=== PATIENT | male | born 1960 | race Caucasian/White ===

== ENCOUNTER 2016-05-06 14:05 | Emergency (ER) | payer MEDICARE, MEDICAID ==
[2016-05-06] MEDS ORDERED: Acetaminophen 500 MG TAB ONE (14:42)
[2016-05-06] MEDS ORDERED: Dexamethasone 4 MG TAB ONE (14:42)
[2016-05-06] MEDS ORDERED: Ketorolac Tromethamine 60 MG/2 ML VIAL ONE (14:42)
[2016-05-06] MEDS ORDERED: Diazepam 5 MG TAB ONE (14:42)
--- NOTE | 2016-05-06 14:43 | PICIS ---
[facility] EMERGENCY RECORD TRIAGE (14:20 JPER) PATIENT: NAME: Leticia Jean-Baptiste, AGE: 55, GENDER: male, : Fri1960, TIME OF GREET: FriMay 06, 2016 14:06, PREFERRED LANGUAGE: German, RACE: WHITE, ETHNICITY: Not or , ECODE BILLING MAP: [facility], SSN: [id number], Zip Code: [address], KG WEIGHT: 83.01, PHONE: , , , PERSON ID: [id number], PCP: MD Haynes Warren. (14:20 JPER) COMPLAINT: PULLED A MUSCLE-BACK. (14:20 JPER) ADMISSION: URGENCY: 4 Non Urgent, ADMISSION SOURCE: Home, TRANSPORT: Walk-in, BED: ED -03. (14:20 JPER) ASSESSMENT: Assessment: PT C/O MID TO LOW BACK PAIN RAD TO THE GROIN BILAT ONSET FRIDAY AFTER LIFTING FEED BAGS INTO BARREL ON FRIDAY. (14:20 JPER) PAIN: Patient complains of pain described as, aching, on a scale 0-10 patient rates pain as 10, Pain is constant, No aggravating factors, No relieving factors. (14:20 JPER) IMMUNIZATIONS: Flu vaccine up to date, Tetanus immunization up to date, Pneumococcal vaccine up to date. (14:20 JPER) SIRS SCORING: Heart Rate 55-109 (0), Temp range 96.8-101.1 (0), respiratory rate 12-24 (0), Mental Status altered: no (0). (14:20 JPER) TRIAGE SCREENING: Patient denies suicidal ideation, Patient denies presence of domestic violence. (14:20 JPER) PROVIDERS: TRIAGE NURSE: Aga Russell RN. (14:20 JPER) VITAL SIGNS: BP 106/69, Pulse 68, Resp 18, Temp 98.1, (Oral), O2 Sat 98, on Room Air, Time 05/06/2016 14:11. (14:11 JPER) PREVIOUS VISIT ALLERGIES: codeine sulfate, Flexeril. (14:20 JPER) KNOWN ALLERGIES codeine sulfate Flexeril CURRENT MEDICATIONS aspirin: TABLET : Strength - 325 mg : ORAL Patient Dose: mg Oral once a day. (14:22 JPER) MS Contin: TABLET, EXTENDED RELEASE : Strength - 100 mg : ORAL Patient Dose: 3 times a day. (14:24 JPER) Soma: TABLET : Strength - 350 mg : ORAL Patient Dose: Unknown. (14:32 JPER) Valium: TABLET : Strength - 10 mg : ORAL Patient Dose: every 8 hours PRN. (14:32 JPER) VITAL SIGNS VITAL SIGNS: BP: 106/69, Pulse: 68, Resp: 18, Temp: 98.1 (Oral), &a-1R&a+25V*p+0X*[id number]*c202B*c15G*c2P*p-0X&a-25V&a+1R Name: Leticia Jean-Baptiste : 1960 M55 MedRec: [id number] AcctNum: [id number] Prepared: FriMay 06, 2016 15:26 by Interface Page 1 of 7 pMD [facility] EMERGENCY RECORD O2 sat: 98 on Room Air, Time: 05/06/2016 14:11. (14:11 JPER) BP: 105/65, Pulse: 68, Resp: 18, Temp: 98.1, Pain: 9, O2 sat: 98 on RA, Time: 05/06/2016 15:00. (15:00 JPER) NURSING ASSESSMENT: BACK (14:30 JPER) CONSTITUTIONAL: Patient arrives, via hospital wheelchair, Gait steady, History obtained from patient, Patient appears, with contractures, uncomfortable, Patient cooperative, Patient alert, Oriented to person, place and time, Skin warm, Skin dry, Skin normal in color, Mucous membranes pink, Mucous membranes moist, Patient is well-groomed, Patient complains of LOW TO MID BACK PAIN. PAIN: aching pain, to the mid back, to the lower back, on a scale 0-10 patient rates pain as 10, Pain exacerbated by nothing, Nothing has been tried to alleviate the pain. BACK: Right radial pulse +3(easily palpated, considered normal), Left radial pulse +3(easily palpated, considered normal). NECK: Neck assessment findings include trachea midline. NOTES: Emotional support needed and given, Patient tolerated procedure well. NURSING PROCEDURE: DISCHARGE NOTE (15:00 JPER) DISCHARGE: Patient discharged to home, in a wheelchair, family driving, accompanied by //partner, Summary of Care printed/ provided, Patient requested and was provided an electronic copy of Discharge Instructions, Transition record given to patient, Discharge instructions given to patient, Prescriptions given and instructions on side effects given, Above person(s) verbalized understanding of discharge instructions and follow-up care, Patient treated and evaluated by physician. BELONGINGS: Belongings remain with patient, Valuables remain with patient. NOTES: Emotional support needed and given, Patient tolerated procedure well. VITAL SIGNS: BP: 105, / 65, Pulse: 68, Resp: 18, Temp: 98.1, Pain: 9, O2 sat: 98, on: RA. MEDICATION ADMINISTRATION SUMMARY Drug Name: Toradol intramuscular, Dose Ordered: 60 mg, Route: Intramuscular, Status: Given, Time: 14:49 05/06/2016, Drug Name: dexamethasone, Dose Ordered: 10 mg, Route: Oral, Status: Given, Time: 14:35 05/06/2016, Drug Name: acetaminophen oral, Dose Ordered: 1000 mg, Route: Oral, Status: Given, Time: 14:35 05/06/2016, Drug Name: Valium oral, Dose Ordered: 10 mg, Route: Oral, Status: Given, Time: 14:33 05/06/2016, Detailed record available in Medication Service section. &a-1R&a+25V*p+0X*[id number]*c202B*c15G*c2P*p-0X&a-25V&a+1R Name: Leticia Jean-Baptiste : 1960 M55 MedRec: [id number] AcctNum: [id number] Prepared: FriMay 06, 2016 15:26 by Interface Page 2 of 7 pMD [facility] EMERGENCY RECORD MEDICATION SERVICE acetaminophen oral: Order: acetaminophen oral (acetaminophen) - Dose: 1000 mg : Oral Schedule: Now Ordered by: Epifanio Parry MD Entered by: Epifanio Parry MD FriMay 06, 2016 14:32 Documented as given by: Aga Russell RN FriMay 06, 2016 14:35 Patient, Medication, Dose, Route and Time verified prior to administration. Amount given: 1GM, Site: Medication administered P.O., Correct patient, time, route, dose and medication confirmed prior to administration, Patient advised of actions and side-effects prior to administration, Allergies confirmed and medications reviewed prior to administration, Administered by CIARRA LIM. dexamethasone: Order: dexamethasone - Dose: 10 mg : Oral Schedule: Now Ordered by: Epifanio Parry MD Entered by: Epifanio Parry MD FriMay 06, 2016 14:32 Documented as given by: Aga Russell RN FriMay 06, 2016 14:35 Patient, Medication, Dose, Route and Time verified prior to administration. Amount given: 10MG, Site: Medication administered P.O., Correct patient, time, route, dose and medication confirmed prior to administration, Patient advised of actions and side-effects prior to administration, Allergies confirmed and medications reviewed prior to administration, Administered by CIARRA LIM, Patient in position of comfort, Side rails up, Cart in lowest position, Family at bedside. Toradol intramuscular: Order: Toradol intramuscular (ketorolac tromethamine) - Dose: 60 mg : Intramuscular POTENTIAL CONTRAINDICATED INTERACTION: aspirin oral - Benefits outweigh risks Schedule: Now Ordered by: Epifanio Parry MD Entered by: Epifanio Parry MD FriMay 06, 2016 14:33 Documented as given by: Aga Russell RN FriMay 06, 2016 14:49 Patient, Medication, Dose, Route and Time verified prior to administration. IM medication, Amount given: 60MG, Medication administered to right hip, Correct patient, time, route, dose and medication confirmed prior to administration, Patient advised of actions and side-effects prior to administration, Allergies confirmed and medications reviewed prior to administration, Administered by CIARRA LIM, Patient in position of comfort, Side rails up, Cart in lowest position, Family at bedside. Valium oral: Order: Valium oral (diazepam) - Dose: 10 mg : Oral Schedule: Now Ordered by: Epifanio Parry MD Entered by: Epifanio Parry MD FriMay 06, 2016 14:31 &a-1R&a+25V*p+0X*[id number]*c202B*c15G*c2P*p-0X&a-25V&a+1R Name: Leticia Jean-Baptiste : 1960 M55 MedRec: [id number] AcctNum: [id number] Prepared: FriMay 06, 2016 15:26 by Interface Page 3 of 7 pMD [facility] EMERGENCY RECORD Documented as given by: Aga Russell RN Mon May 06, 2016 14:33 Patient, Medication, Dose, Route and Time verified prior to administration. Amount given: 10 MG, Site: Medication administered P.O., Correct patient, time, route, dose and medication confirmed prior to administration, Patient advised of actions and side-effects prior to administration, Allergies confirmed and medications reviewed prior to administration, Administered by CIARRA LIM, Patient in position of comfort, Side rails up, Cart in lowest position, Family at bedside. HPI BACK (14:38 ABUS) CHIEF COMPLAINT: Patient presents for evaluation of pain, to the right lower back. HISTORIAN: History provided by patient, History provided by patient's spouse, 55 yr old M with known chronic back pain with acute worsening of back pain after trying to lift a bag of feed (he felt a muscle pull immediately). he has tried to take his meds but has nt relief for the past 3-4 days. Has normal control over bowel and bladder function/activity,no fevers, can stand and walk, has normal sensation to feet. MECHANISM OF INJURY: Mechanism of injury: Body motion. LOCATION: Symptoms are localized to the back, to lumbar spine. QUALITY: Pain is dull in nature, described as throbbing. SEVERITY: Currently symptoms are severe, Current severity of pain rated as 10/10. TIME COURSE: Gradual onset of symptoms, 3-4 days. ASSOCIATED WITH: Associated symptoms reviewed. EXACERBATED BY: Patient's condition exacerbated by movement. RELIEVED BY: Patient's condition relieved by nothing. ROS (14:38 ABUS) CONSTITUTIONAL: Negative constitutional review of systems, Historian denies chills, denies fever. ENT: Negative ears, nose, throat review of systems, Historian denies rhinorrhea, denies sore throat. CARDIOVASCULAR: Negative cardiovascular review of systems, Historian denies chest pain, denies palpitations. RESPIRATORY: Negative respiratory review of systems, Historian denies cough, denies shortness of breath. GI: Negative gastrointestinal review of systems, Historian denies abdominal pain, denies constipation, denies diarrhea, denies nausea, denies vomiting. MUSCULOSKELETAL: Historian reports back pain, reports myalgias, reports spasms. SKIN: Negative skin review of systems, Historian denies rash, denies skin changes. NEUROLOGIC: Negative neurologic review of systems, Historian denies headache. &a-1R&a+25V*p+0X*[id number]*c202B*c15G*c2P*p-0X&a-25V&a+1R Name: Leticia Jean-Baptiste : 1960 M55 MedRec: [id number] AcctNum: [id number] Prepared: FriMay 06, 2016 15:26 by Interface Page 4 of 7 pMD [facility] EMERGENCY RECORD PAST MEDICAL HISTORY (14:20 JPER) MEDICAL HISTORY: Past medical history includes cardiac history, unspecified arrhythmia, treated with an AICD, Past medical history includes history of hypertension, which has been treated. MALE SURGICAL HISTORY: Surgical history of spinal surgery, lumbar, sacral. PSYCHIATRIC HISTORY: Notes: DENIES. SOCIAL HISTORY: Patient denies alcohol use, Patient denies drug use, Patient currently uses tobacco, smokes cigarettes, Patient smokes 1 pack per day. PHYSICAL EXAM (14:38 ABUS) CONSTITUTIONAL: Vital signs reviewed, Patient afebrile, Pulse normal, Blood pressure normal, Respiratory rate normal, Patient appears non toxic, Patient appears pain free, Patient alert and oriented to person, place and time. NECK: Neck exam normal, Neck exam included findings of normal range of motion, Trachea midline, no meningeal signs, no cervical adenopathy, no tenderness. RESPIRATORY CHEST: Respiratory and chest exam normal, Respiratory exam included findings of no respiratory distress, Breath sounds clear. CARDIOVASCULAR: Cardiovascular assessment normal, Cardiovascular exam included findings of heart rate regular rate and rhythm, Heart sounds normal. ABDOMEN MALE: Abdominal exam included findings of abdomen nontender, Bowel sounds normal, no distension, no mass, no pulsatile masses, no peritoneal signs, no rigidity, no guarding, no rebound, Rovsing's sign absent. BACK: Back exam included findings of normal inspection, Tenderness, midline to the lower back, Old incision that is healed form prior surgey. NEURO: Neuro exam normal, Neuro exam findings include patient oriented to person, place and time, Speech normal, Gait normal. SKIN: Skin exam normal, Skin exam included findings of skin warm, dry, and normal in color, no rash. EVENTS TRANSFER: Triage to Emergency Main ED -03. (FriMay 06, 2016 14:20 JPER) Removed from Emergency Main ED -03. (15:19 JPER) DOCTOR NOTES (14:43 ABUS) TEXT: 55 yr old M with known chronic back pain with acute worsening of back pain after trying to lift a bag of feed (he felt a muscle pull immediately). EXAM: Tenderness, midline to the lower back, Old incision that is healed form prior surgery. DDX: Muscle strain, Muscle Spasm, Ligamentous Injury, Contusion, Soft &a-1R&a+25V*p+0X*k9940A*c202B*c15G*c2P*p-0X&a-25V&a+1R Name: Leticia Jean-Baptiste : 1960 M55 MedRec: [id number] AcctNum: [id number] Prepared: FriMay 06, 2016 15:26 by Interface Page 5 of 7 pMD [facility] EMERGENCY RECORD Tissue Injury, Arthritis, Degenerative Joint Disease, Spinal Stenosis, Disk Herniation PLAN: Analgesics, Muscle Relaxants. Final Dispo: Dx: Muscle spasm, Strain. D/c Home with follow up and return precautions. All results of testing and evaluation were shared with the patient who verbalized understanding and agreement with the plan of care. Level of Complexity / Medical Decision Making: Low to Moderate. PROBLEM LIST No recorded problems DIAGNOSIS (14:35 ABUS) FINAL: PRIMARY: OTHER MUSCLE SPASM. DISPOSITION PATIENT: Disposition Type: Discharge, Disposition: *Discharge Home, Condition: Good. (14:35 ABUS) Patient left the department. (15:19 JPER) INSTRUCTION (14:37 ABUS) DISCHARGE: BACK SPASM, NO TRAUMA. FOLLOWUP: MD [facility], [address] [place] [address] [address], [place] [address], , Follow up with Primary Care Physician in 1-2 days. SPECIAL: As discussed in the ED, please keep any upcoming appointments with your primary doctor or call the referral provided to you today to establish a follow up evaluation or ongoing medical care. Please come back if you start to have fever, vomiting, numbness, difficulty walking or controlling your bowel or bladder function, or any symptoms that concern you. PRESCRIPTION (14:35 ABUS) ibuprofen: TABLET : 800 mg : ORAL : Quantity: 1 Unit: tab(s) Route: ORAL Schedule: every 8 hours PRN Dispense: 12 Unit: tab(s) May substitute. Refills: No Refills POTENTIAL CONTRAINDICATED INTERACTION: Toradol intramuscular (ketorolac tromethamine) Override Rationale: Benefits outweigh risks. NOTES: No Refills. Valium oral: TABLET : 5 mg : ORAL : Quantity: 1 Unit: tab(s) Route: ORAL Schedule: every 8 hours PRN Dispense: 8 Unit: tab(s) May substitute. Refills: No Refills . NOTES: ^s=No Refills No Refills. IMAGING *DISCHARGE INSTRUCTIONS RECEIPT: Image captured from scanner. &a-1R&a+25V*p+0X*t4386C*c202B*c15G*c2P*p-0X&a-25V&a+1R Name: Leticia Jean-Baptiste : 1960 M55 MedRec: [id number] AcctNum: [id number] Prepared: FriMay 06, 2016 15:26 by Interface Page 6 of 7 pMD [facility] EMERGENCY RECORD (15:05 JPER) *SUPPLY CHARGE SHEET: Image captured from scanner. (15:04 JPER) ADMIN DIGITAL SIGNATURE: MD Parry Anthony. (14:37 ABUS) MD Parry Anthony. (14:46 ABUS) RAPHAEL Russell Jana. (15:19 JPER) Jamil: ABUS=MD Parry Anthony JPER=RAPHAEL Russell Jana &a-1R&a+25V*p+0X*t3553U*c202B*c15G*c2P*p-0X&a-25V&a+1R Name: Leticia Jean-Baptiste : 1960 M55 MedRec: [id number] AcctNum: [id number] Prepared: FriMay 06, 2016 15:26 by Interface Page 7 of 7 pMD MTDD
== END 2016-05-06 15:00 | disposition home or self-care (01) ==
LOC: MADERS 14:05
DX: M62.830 Muscle spasm of back (principal); X58.XXXA Exposure to other specified factors, initial encounter
CPT/HCPCS: 96372; J1885; J8540

== ENCOUNTER 2017-03-18 09:56 | Emergency (ER) | payer MEDICARE, MEDICAID ==
[2017-03-18] MEDS ORDERED: traMADol HCl 50 MG TAB ONE (11:07)
[2017-03-18] MEDS ORDERED: Ketorolac Tromethamine 60 MG/2 ML VIAL ONE (11:07)
--- NOTE | 2017-03-18 11:41 | RAD ---
LEFT KNEE FOUR VIEWS: History: Left knee pain. FINDINGS: Medial and lateral joint spaces are preserved. Very mild degenerative spurring is seen from the femor al condyles. No fracture or acute abnormality. No evidence of joint effusion. IMPRESSION: Very mild degenerative change noted. POS: GUERA
== END 2017-03-18 12:30 | disposition home or self-care (01) ==
LOC: MADERS 09:56
DX: S83.92XA Sprain of unspecified site of left knee, initial encounter (principal); I10 Essential (primary) hypertension; F17.210 Nicotine dependence, cigarettes, uncomplicated; I49.9 Cardiac arrhythmia, unspecified; Z79.82 Long term (current) use of aspirin; Z79.891 Long term (current) use of opiate analgesic; X50.1XXA Overexertion from prolonged static or awkward postures, initial encounter
CPT/HCPCS: 96372; J1885

== ENCOUNTER 2020-11-08 09:28 | Emergency (ER) | payer OTHER, MEDICARE, MEDICAID ==
[2020-11-08] MEDS ORDERED: Orphenadrine Citrate 60 MG/2 ML VIAL ONE (11:07)
[2020-11-08 22:07] LABS: SARS-CoV-2 PCR by NAA Not Detected (NotDetected)
== END 2020-11-08 11:35 | disposition home or self-care (01) ==
LOC: MADERS 09:28
DX: M54.6 Pain in thoracic spine (principal); R07.81 Pleurodynia; M54.2 Cervicalgia; M25.50 Pain in unspecified joint; M79.10 Myalgia, unspecified site; M79.671 Pain in right foot; Z20.822 Contact with and (suspected) exposure to COVID-19; I49.9 Cardiac arrhythmia, unspecified; F17.210 Nicotine dependence, cigarettes, uncomplicated; I10 Essential (primary) hypertension; Z79.82 Long term (current) use of aspirin; Z79.899 Other long term (current) drug therapy; V49.9XXA Car occupant (driver) (passenger) injured in unspecified traffic accident, initial encounter
CPT/HCPCS: 70450; 71250; 72125; 74177; 96372; J2360; U0003; U0005

== ENCOUNTER 2021-02-20 20:31 | Emergency (ER) | payer MEDICARE, MEDICAID ==
[~2021-02-20 20:31] MED LIST: Iopamidol 370 76% 100 ML VIAL ONE
[2021-02-20] MEDS ORDERED: Morphine 4 MG/ML VIAL ONE (23:08)
[2021-02-20 23:11] LABS: #Lymphocytes 0.9 thou/uL (1.20-3.40); #Monocytes 0.1 thou/uL (0.11-0.59); #Neutrophils 6.7 thou/uL (1.40-6.50); %Basophils 0.5 % (0.0-1.0); %Eosinophils 0.2 % (0.0-10.0); %Lymphocytes 11.9 % (21.0-51.0); %Monocytes 1.7 % (0.0-10.0); %Neutrophils 85.6 % (42.0-75.0); Hemoglobin 14.2 g/dL (14.0-18.0); Mean Corpuscular HGB CONC 31.9 g/dL (32.0-36.0); Mean Corpuscular Hemoglobin 30.4 pg (27.0-31.0); Mean Corpuscular Volume 95.4 fL (78.0-98.0); Mean Platelet Volume 8.2 fL (7.4-10.4); Platelet Count 177 thou/uL (130-400); RBC Distribution Width 11.6 % (11.5-14.5); Red Blood Cell (RBC) Count 4.66 mill/uL (4.70-6.10); White Blood Cell (WBC) Count 7.8 thou/uL (4.8-10.8)
[2021-02-20 23:40] LABS: ALT (SGPT) 23 U/L (8-55); AST (SGOT) 24 U/L (5-34); Albumin 4.3 g/dL (3.4-4.8); Alkaline Phosphatase 55 U/L (40-110); Anion Gap 13 mmol/L (10-20); BUN (Urea Nitrogen) 22 mg/dL (8.4-25.7); Bilirubin, Total 0.3 mg/dL (0.2-1.2); Calc. Creatinine Clearance 0 mL/min (70-130); Calcium 9.9 mg/dL (7.8-10.44); Carbon Dioxide 26 mmol/L (23-31); Chloride 101 mmol/L (98-107); Globulin 3.3 g/dL (2.4-3.5); Glucose 130 mg/dL (80-115); Potassium 4.6 mmol/L (3.5-5.1); Protein, Total 7.6 g/dL (5.8-8.1); Sodium 135 mmol/L (136-145)
[2021-02-21] MEDS ORDERED: Morphine 4 MG/ML VIAL ONE (00:05)
== END 2021-02-21 01:11 | disposition home or self-care (01) ==
LOC: MADERS 20:31
DX: S39.011A Strain of muscle, fascia and tendon of abdomen, initial encounter (principal); I10 Essential (primary) hypertension; I25.2 Old myocardial infarction; I49.9 Cardiac arrhythmia, unspecified; F17.210 Nicotine dependence, cigarettes, uncomplicated; Z79.82 Long term (current) use of aspirin; Z79.899 Other long term (current) drug therapy; Z79.891 Long term (current) use of opiate analgesic; X50.1XXA Overexertion from prolonged static or awkward postures, initial encounter
CPT/HCPCS: 72193; 80053; 85025; 96374; 96376; J2270; Q9967

== ENCOUNTER 2023-01-28 18:09 | Emergency (ER) | payer OTHER ==
[2023-01-28] MEDS ORDERED: Glucagon 1 MG/ML KIT ONE (18:19)
[2023-01-28] MEDS ORDERED: Ondansetron PF 4 MG/2 ML Vial ONE (18:19)
== END 2023-01-28 20:25 | disposition short-term general hospital (02) ==
LOC: MADERS 18:09
DX: T18.128A Food in esophagus causing other injury, initial encounter (principal); I10 Essential (primary) hypertension; F17.210 Nicotine dependence, cigarettes, uncomplicated; Z79.899 Other long term (current) drug therapy
CPT/HCPCS: 70360; 71046; 96374; 96375; J1611; J2405